=== PATIENT | male | born 1975 | race Caucasian/White ===

== ENCOUNTER → 2019-06-25 | Outpatient (CLI) | payer OTHER ==
[~2019-06-25] MED LIST: IBUPROFEN800 MG PO; MELOXICAM PO
== END ==
LOC: MHCPAIN 12:09
DX: G89.29 Other chronic pain (principal); M47.812 Spondylosis without myelopathy or radiculopathy, cervical region
CPT/HCPCS: G0463

== ENCOUNTER → 2019-07-04 | Outpatient (CLI) | payer OTHER | LOC: COL.RAD 13:15 | DX: M96.1 Postlaminectomy syndrome, not elsewhere classified (principal); Z98.1 Arthrodesis status | CPT/HCPCS: A9585 ==

== ENCOUNTER → 2019-07-22 | Outpatient (CLI) | payer OTHER | LOC: MHCPAIN 14:16 | DX: G89.29 Other chronic pain (principal); M47.817 Spondylosis without myelopathy or radiculopathy, lumbosacral region; M53.3 Sacrococcygeal disorders, not elsewhere classified; M96.1 Postlaminectomy syndrome, not elsewhere classified | CPT/HCPCS: G0463 ==

== ENCOUNTER → 2019-09-04 | Outpatient (CLI) | payer OTHER | LOC: MHCPAIN 08-07 16:28 | DX: M51.36 Other intervertebral disc degeneration, lumbar region (principal); M54.5 Low back pain ==

== ENCOUNTER → 2019-09-15 | Outpatient (CLI) | payer OTHER | LOC: MHCPAIN 13:48 | DX: M51.36 Other intervertebral disc degeneration, lumbar region (principal); M54.5 Low back pain ==

== ENCOUNTER → 2019-10-27 | Outpatient (CLI) | payer OTHER | LOC: MHCPAIN 14:34 | DX: M47.817 Spondylosis without myelopathy or radiculopathy, lumbosacral region (principal); M53.3 Sacrococcygeal disorders, not elsewhere classified; M96.1 Postlaminectomy syndrome, not elsewhere classified | CPT/HCPCS: G0463; J1100; J2250; J3010 ==

== ENCOUNTER → 2020-02-23 | Outpatient (CLI) | payer OTHER | LOC: MHCPAIN 08:57 | DX: M47.817 Spondylosis without myelopathy or radiculopathy, lumbosacral region (principal); M54.5 Low back pain; M53.3 Sacrococcygeal disorders, not elsewhere classified; G89.29 Other chronic pain; M96.1 Postlaminectomy syndrome, not elsewhere classified | CPT/HCPCS: G0463 ==

== ENCOUNTER → 2021-11-01 | Outpatient (CLI) | payer OTHER | LOC: MHCPAIN 10:43 | DX: M47.817 Spondylosis without myelopathy or radiculopathy, lumbosacral region (principal); M54.50 Low back pain, unspecified; M53.3 Sacrococcygeal disorders, not elsewhere classified; M96.1 Postlaminectomy syndrome, not elsewhere classified | CPT/HCPCS: G0463 ==

== ENCOUNTER → 2021-11-24 | Outpatient (CLI) | payer OTHER | LOC: MHCPAIN 08:41 | DX: M47.817 Spondylosis without myelopathy or radiculopathy, lumbosacral region (principal); M54.50 Low back pain, unspecified; M53.3 Sacrococcygeal disorders, not elsewhere classified | CPT/HCPCS: J1100; J2250; J3010 ==